=== PATIENT | female | born 1955 | race Caucasian/White ===

== ENCOUNTER → 2017-09-16 | Outpatient (REF) | payer OTHER | LOC: M LAB REF 15:25 | DX: R92.0 Mammographic microcalcification found on diagnostic imaging of breast (principal) ==

== ENCOUNTER → 2019-07-26 | Outpatient (REF) | payer MEDICARE | LOC: M LAB LCGH 11:38 | PROVIDERS: ATTEND Physician Assistant | DX: Z01.419 Encounter for gynecological examination (general) (routine) without abnormal findings (principal) ==

== ENCOUNTER → 2021-10-16 | Outpatient (CLI) | payer MEDICARE ==
[~2021-10-16] MED LIST: CALC500C16 PO; DOXY50TA3 PO; FURO20TA2 PO; VITA200048 PO
[2021-10-16 10:51] VITALS: BP 146/82
== END ==
LOC: M WHCPRO 08:24
PROVIDERS: ATTEND Surgery
DX: C50.912 Malignant neoplasm of unspecified site of left female breast (principal)

== ENCOUNTER → 2021-10-28 | Outpatient (CLI) | payer MEDICARE | LOC: M PLALAB 08:52 | PROVIDERS: ATTEND Surgery | DX: C50.919 Malignant neoplasm of unspecified site of unspecified female breast (principal) ==

== ENCOUNTER → 2021-11-16 | Outpatient (CLI) | payer MEDICARE ==
[~2021-11-16] MED LIST changes: +ATOR1TAB21
== END ==
LOC: M LABSMTC 08:54
PROVIDERS: ATTEND Anesthesiology
DX: Z01.812 Encounter for preprocedural laboratory examination (principal); Z20.822 Contact with and (suspected) exposure to COVID-19

== ENCOUNTER 2021-11-21 08:18 | Observation (INO) | payer MEDICARE ==
[~2021-11-21] VITALS: Ht 160 cm; Wt 89.4 kg
[~2021-11-21 08:18] MED LIST changes: +HEPARIN SOD (PORCINE) 5000UNITS/ML 1ML VIAL/SYRINGE SQ ONE; +LR 1,000 ML IV ONE; +ceFAZolin SOD 2 GM in IV 1 EA IV ONE
[2021-11-21] MEDS ORDERED: THERTAB52 PO (09:14)
[2021-11-21] MEDS ORDERED: HYDR-3490 PO (09:14)
[2021-11-21] MEDS ORDERED: MIDAZOLAM INJ 2MG/2ML VIAL (J2250 PER 1MG) As Ordered ONE (13:10)
[2021-11-21] MEDS ORDERED: fentaNYL 100 MCG/2 ML INJECTION As Ordered ONE ×2 (13:10→16:04)
[2021-11-21] MEDS ORDERED: propofoL 200 MG/20 ML VIAL As Ordered ONE (13:11)
[2021-11-21] MEDS ORDERED: SUCCINYLCHOLINE 100 MG/5 ML SYRINGE (J0330) As Ordered ONE (13:11)
[2021-11-21] MEDS ORDERED: dexameTHASONE 4 MG/ML 1ML VIAL (J1100 PER 1MG) As Ordered ONE (13:11)
[2021-11-21] MEDS ORDERED: ONDANSETRON 4MG/2ML VIAL As Ordered ONE ×2 (13:11→16:14)
[2021-11-21] MEDS ORDERED: LIDOCAINE 2% 100MG/5ML SDV (FOR ANES.) As Ordered ONE (13:11)
[2021-11-21] MEDS ORDERED: SUGAMMADEX SODIUM 500 MG/5 ML VIAL (BRIDION) As Ordered ONE (14:18)
[2021-11-21] MEDS ORDERED: ceFAZolin 1GM VIAL (J0690 PER 500MG) As Ordered ONE (15:13)
[2021-11-21] MEDS ORDERED: LIDOCAINE 1% SDV 30ML VIAL As Ordered ONE (15:13)
[2021-11-21] MEDS ORDERED: METHYLENE BLUE 0.5% (5MG/ML) 10 ML AMP (PROVAYBLUE) As Ordered ONE (15:13)
[2021-11-21] MEDS ORDERED: ROCURONIUM BROMIDE 50 MG/5 ML VIAL As Ordered ONE (15:45)
[2021-11-21] MEDS ORDERED: PHENYLephrine 500MCG 5ML (100MCG/ML) SYRINGE As Ordered ONE (15:55)
[2021-11-21] MEDS ORDERED: HYDROmorphone HCL 2MG/ML 1ML VIAL As Ordered ONE (16:07)
[2021-11-21] MEDS ORDERED: ePHEDrine SULFATE 25 MG/5 ML(5MG/ML) SYRINGE As Ordered ONE (16:10)
[2021-11-21] MEDS ORDERED: METOCLOPRAMIDE INJ 10MG/2ML VIAL (J2765 PER 1) As Ordered ONE (16:14)
[2021-11-21] MEDS ORDERED: ACETAMINOPHEN 1000MG 100ML IV BTL (OFIRMEV) (J0131 PER 10MG) As Ordered ONE (16:14)
[2021-11-21] MEDS: BUPIVACAINE HCL 0.25% 30ML VIAL As Ordered ONE ×2 (17:00→18:13)
[2021-11-21] MEDS: BUPIVACAINE LIPOSOME/PF 1.3% 20ML VIAL (13.3MG/ML)(EXPAREL) As Ordered ONE ×2 (17:00→18:13)
[2021-11-21] MEDS ORDERED: LR 1,000 ML IV SCH ×2 (18:05→19:00)
[2021-11-21] MEDS ORDERED: ONDANSETRON 4MG/2ML VIAL IV PRN ×2 (18:05→19:00)
[2021-11-21] MEDS ORDERED: oxyCODONE 5MG TAB PO PRN (19:00)
[2021-11-21] MEDS ORDERED: fentaNYL 100 MCG/2 ML INJECTION IV PRN (19:00)
[2021-11-21] MEDS ORDERED: MORPHINE 4 MG/ML 1ML VIAL/SYRINGE IV PRN (19:00)
[2021-11-21 20:45] VITALS: BP 166/88
[2021-11-21 21:15] VITALS: BP 151/76
[2021-11-21 21:45] VITALS: BP 154/81
[2021-11-21] MEDS ORDERED: DOXY50TA3 PO (21:52)
[2021-11-21] MEDS ORDERED: VITMTA PO (21:52)
[2021-11-21] MEDS ORDERED: D-20TAB PO (21:52)
[2021-11-21] MEDS ORDERED: ATOR1TAB21 PO (21:52)
[2021-11-21] MEDS ORDERED: OYST500T92 PO (21:52)
[2021-11-21] MEDS ORDERED: HOME MED LIST COMPLETE! XX SCH (21:55)
[2021-11-21] MEDS: ceFAZolin SOD 2 GM in IV 1 EA IV SCH (21:58)
[2021-11-21] MEDS: HEPARIN SOD (PORCINE) 5000UNITS/ML 1ML VIAL/SYRINGE SQ SCH (21:58)
[2021-11-21] MEDS: ACETAMINOPHEN TAB 650MG DOSE (2X325MG) PO PRN (21:59)
[2021-11-21 22:45] VITALS: BP 157/88
[2021-11-21 23:45] VITALS: BP 151/78
[2021-11-22 00:45] VITALS: BP 145/72
[2021-11-22 04:45] VITALS: BP 125/70
[2021-11-22] MEDS: HEPARIN SOD (PORCINE) 5000UNITS/ML 1ML VIAL/SYRINGE SQ SCH (05:20)
[2021-11-22] MEDS: ACETAMINOPHEN TAB 650MG DOSE (2X325MG) PO PRN (05:20)
[2021-11-22] MEDS: ceFAZolin SOD 2 GM in IV 1 EA IV SCH (05:20)
[2021-11-22 10:00] VITALS: BP 131/72
[2021-11-22] MEDS ORDERED: TRAM50TA2 PO (10:21)
== END 2021-11-22 13:00 | disposition home or self-care (01) ==
LOC: M SDC 08:18 → M MS5PR 08:19
PROVIDERS: ADMIT Surgery; ATTEND Surgery
DX: D05.12 Intraductal carcinoma in situ of left breast (principal); N64.89 Other specified disorders of breast; F40.240 Claustrophobia; E78.2 Mixed hyperlipidemia; R73.01 Impaired fasting glucose; R10.2 Pelvic and perineal pain; M85.80 Other specified disorders of bone density and structure, unspecified site; M72.2 Plantar fascial fibromatosis; E55.9 Vitamin D deficiency, unspecified; I11.9 Hypertensive heart disease without heart failure; I25.10 Atherosclerotic heart disease of native coronary artery without angina pectoris; L71.9 Rosacea, unspecified; R60.0 Localized edema; Z79.899 Other long term (current) drug therapy; Z79.2 Long term (current) use of antibiotics; Z92.29 Personal history of other drug therapy; Z98.890 Other specified postprocedural states; Z87.891 Personal history of nicotine dependence
CPT/HCPCS: 19302; 19316; 36415; 38525; 76942; 78195; 86850; 86900; 86901; 88305; 88307; 96372; 96374; 96376; A9520; C9290; G0378; J0131; J0330; J0690; J1100; J1170; J1644; J2250; J2370; J2405; J2765; J3010

== ENCOUNTER → 2021-12-10 | Outpatient (CLI) | payer MEDICARE ==
[~2021-12-10] MED LIST changes: +ANAS1TAB2 PO; +ATOR1TAB21 PO; +D 1010004 PO; +D-20TAB PO; -HEPARIN SOD (PORCINE) 5000UNITS/ML 1ML VIAL/SYRINGE SQ ONE; +HYDR-3490 PO; -LR 1,000 ML IV ONE; +OYST500T92 PO; +THERTAB52 PO; +TRAM50TA2 PO; +VITMTA PO; +[UNRECOGNIZED DRUG - OTHER] PO; -ceFAZolin SOD 2 GM in IV 1 EA IV ONE
== END ==
LOC: M ONCR 12:40
PROVIDERS: ATTEND General Practice
DX: D05.12 Intraductal carcinoma in situ of left breast (principal); Z79.2 Long term (current) use of antibiotics; Z79.899 Other long term (current) drug therapy

== ENCOUNTER → 2021-12-12 | Outpatient (CLI) | payer MEDICARE | LOC: M LABSMTC 10:26 | PROVIDERS: ATTEND Anesthesiology | DX: Z01.818 Encounter for other preprocedural examination (principal); Z11.52 Encounter for screening for COVID-19 ==

== ENCOUNTER 2021-12-17 08:45 | Observation (INO) | payer MEDICARE ==
[2021-12-17] VITALS (8 sets, daily range): BP systolic 121–138; BP diastolic 65–96
[~2021-12-17] VITALS: Ht 160 cm; Wt 89.4 kg
[~2021-12-17 08:45] MED LIST changes: +HEPARIN SOD (PORCINE) 5000UNITS/ML 1ML VIAL/SYRINGE SQ ONE; +LIDOCAINE 2% 100MG/5ML SDV (FOR ANES.) As Ordered ONE; +MIDAZOLAM INJ 2MG/2ML VIAL (J2250 PER 1MG) As Ordered ONE; +NS 1,000 ML IV SCH; +ONDANSETRON 4MG/2ML VIAL As Ordered ONE; +ceFAZolin SOD 2 GM in IV 1 EA IV ONE; +dexameTHASONE 4 MG/ML 1ML VIAL (J1100 PER 1MG) As Ordered ONE; +fentaNYL 100 MCG/2 ML INJECTION As Ordered ONE; +propofoL 200 MG/20 ML VIAL As Ordered ONE
[2021-12-17] MEDS ORDERED: LR 1,000 ML IV SCH ×3 (09:00→14:25)
[2021-12-17] MEDS ORDERED: INSULIN LISPRO (NovoLOG) PER UNIT SC PRN ×2 (09:00→14:05)
[2021-12-17] MEDS ORDERED: SCOPOLAMINE 1MG TRANSDERMAL PATCH TOP ONE (09:45)
[2021-12-17] MEDS ORDERED: BUPIVACAINE HCL 0.25% 10ML VIAL As Ordered ONE (11:27)
[2021-12-17] MEDS ORDERED: BUPIVACAINE LIPOSOME/PF 1.3% 20ML VIAL (13.3MG/ML)(EXPAREL) As Ordered ONE (11:27)
[2021-12-17] MEDS ORDERED: ACETAMINOPHEN 1000MG 100ML IV BTL (OFIRMEV) (J0131 PER 10MG) As Ordered ONE (12:18)
[2021-12-17] MEDS ORDERED: METOCLOPRAMIDE INJ 10MG/2ML VIAL (J2765 PER 1) As Ordered ONE (12:18)
[2021-12-17] MEDS ORDERED: ROCURONIUM BROMIDE 50 MG/5 ML VIAL As Ordered ONE (12:18)
[2021-12-17] MEDS ORDERED: SUGAMMADEX SODIUM 500 MG/5 ML VIAL (BRIDION) As Ordered ONE (12:18)
[2021-12-17] MEDS ORDERED: ONDANSETRON 4MG/2ML VIAL IV PRN ×2 (14:05→14:25)
[2021-12-17] MEDS ORDERED: MORPHINE 2 MG/ML 1ML VIAL IV PRN ×2 (14:05→14:25)
[2021-12-17] MEDS ORDERED: oxyCODONE 5MG TAB PO PRN (14:05)
[2021-12-17] MEDS ORDERED: fentaNYL 100 MCG/2 ML INJECTION IV PRN (14:05)
[2021-12-17] MEDS ORDERED: traMADol 50 MG TAB PO PRN (14:25)
[2021-12-17] MEDS ORDERED: ACETAMINOPHEN TAB 650MG DOSE (2X325MG) PO PRN (14:25)
[2021-12-17 16:13] LABS: HEMATOCRIT 38.8 % (36.0-47.0); MEAN CORPUSCULAR HEMOGLOBIN 29.4 pg (27.0-33.0); MEAN CORPUSCULAR HGB CONC 33.5 g/dl (32.0-36.5); MEAN CORPUSCULAR VOLUME 87.8 fl (80.0-96.0); PLATELET COUNT, AUTOMATED 270 10^3/uL (150-450); RED BLOOD COUNT 4.42 10^6/uL (4.00-5.40); WHITE BLOOD COUNT 7.7 10^3/uL (4.0-10.0)
[2021-12-17] MEDS: ceFAZolin SOD 2 GM in IV 1 EA IV SCH (20:18)
[2021-12-17] MEDS: HEPARIN SOD (PORCINE) 5000UNITS/ML 1ML VIAL/SYRINGE SQ SCH (22:20)
[2021-12-18 02:00] VITALS: BP 134/72
[2021-12-18] MEDS: ceFAZolin SOD 2 GM in IV 1 EA IV SCH ×2 (04:15→11:23)
[2021-12-18] MEDS: HEPARIN SOD (PORCINE) 5000UNITS/ML 1ML VIAL/SYRINGE SQ SCH (04:16)
[2021-12-18 06:00] VITALS: BP 132/77
[2021-12-18] MEDS ORDERED: TRAM50TA2 PO (09:54)
[2021-12-18 10:00] VITALS: BP 126/65
== END 2021-12-18 12:45 | disposition home or self-care (01) ==
LOC: M SDC 08:45 → M MS5PR 08:46
PROVIDERS: ADMIT Surgery; ATTEND Surgery
DX: D05.12 Intraductal carcinoma in situ of left breast (principal)
CPT/HCPCS: 19301; 36415; 85027; 86850; 86900; 86901; 88305; 88307; 96365; 96366; 96372; 96376; C9290; G0378; J0131; J0690; J1100; J1644; J2250; J2405; J2765; J3010

== ENCOUNTER → 2022-01-23 | Outpatient (RCR) | payer MEDICARE ==
[~2022-01-23] MED LIST changes: -HEPARIN SOD (PORCINE) 5000UNITS/ML 1ML VIAL/SYRINGE SQ ONE; -LIDOCAINE 2% 100MG/5ML SDV (FOR ANES.) As Ordered ONE; -MIDAZOLAM INJ 2MG/2ML VIAL (J2250 PER 1MG) As Ordered ONE; -NS 1,000 ML IV SCH; -ONDANSETRON 4MG/2ML VIAL As Ordered ONE; -ceFAZolin SOD 2 GM in IV 1 EA IV ONE; -dexameTHASONE 4 MG/ML 1ML VIAL (J1100 PER 1MG) As Ordered ONE; -fentaNYL 100 MCG/2 ML INJECTION As Ordered ONE; -propofoL 200 MG/20 ML VIAL As Ordered ONE
== END ==
LOC: M ONCR 01-02 08:32
PROVIDERS: ATTEND General Practice
DX: D05.12 Intraductal carcinoma in situ of left breast (principal)

== ENCOUNTER 2022-02-12 08:57 | Outpatient (RCR) | payer MEDICARE | END 2022-02-23 | LOC: M ONCR 08:57 | PROVIDERS: ATTEND General Practice | DX: D05.12 Intraductal carcinoma in situ of left breast (principal) ==

== ENCOUNTER → 2022-08-15 | Outpatient (CLI) | payer MEDICARE ==
[~2022-08-15] MED LIST changes: +LEVO75TA4; +OXYB5TAB10 PO
== END ==
LOC: M ONCR 14:52
PROVIDERS: ATTEND General Practice
DX: D05.12 Intraductal carcinoma in situ of left breast (principal); Z92.3 Personal history of irradiation; Z79.811 Long term (current) use of aromatase inhibitors; Z87.891 Personal history of nicotine dependence; Z79.2 Long term (current) use of antibiotics; Z79.899 Other long term (current) drug therapy

== ENCOUNTER → 2022-09-30 | Outpatient (CLI) | payer MEDICARE ==
[~2022-09-30] MED LIST changes: -LEVO75TA4; +LEVO75TA4 PO; +potassium PO
== END ==
LOC: M WHC 08:49
PROVIDERS: ATTEND Nurse Practitioner Women's Health
DX: D05.12 Intraductal carcinoma in situ of left breast (principal); Z15.09 Genetic susceptibility to other malignant neoplasm
CPT/HCPCS: 77066; G0279

== ENCOUNTER → 2022-10-02 | Outpatient (CLI) | payer MEDICARE | LOC: M LABSMTC 09:15 | PROVIDERS: ATTEND Anesthesiology | DX: Z01.812 Encounter for preprocedural laboratory examination (principal); Z20.822 Contact with and (suspected) exposure to COVID-19 ==

== ENCOUNTER 2022-10-07 05:59 | Day surgery (SDC) | payer MEDICARE ==
[~2022-10-07] VITALS: Ht 160 cm; Wt 89.9 kg
[2022-10-07] MEDS ORDERED: HEPARIN SOD (PORCINE) 5000UNITS/ML 1ML VIAL/SYRINGE SQ ONE (06:00)
[2022-10-07] MEDS ORDERED: ceFAZolin SOD 2 GM in IV 1 EA IV ONE (06:00)
[2022-10-07] MEDS ORDERED: LR 1,000 ML IV SCH ×2 (06:55→10:10)
[2022-10-07] MEDS ORDERED: propofoL 200 MG/20 ML VIAL As Ordered ONE (07:16)
[2022-10-07] MEDS ORDERED: MIDAZOLAM INJ 2MG/2ML VIAL As Ordered ONE (07:16)
[2022-10-07] MEDS ORDERED: fentaNYL 100 MCG/2 ML INJECTION As Ordered ONE (07:16)
[2022-10-07] MEDS ORDERED: ONDANSETRON 4MG 2ML VIAL As Ordered ONE (07:17)
[2022-10-07] MEDS ORDERED: LIDOCAINE 2% 100MG/5ML SDV (FOR ANES.) As Ordered ONE (07:17)
[2022-10-07] MEDS ORDERED: BUPIVACAINE HCL 0.25% 10ML VIAL As Ordered ONE (07:23)
[2022-10-07] MEDS ORDERED: BUPIVACAINE LIPOSOME/PF 1.3% 20ML VIAL (13.3MG/ML)(EXPAREL) As Ordered ONE (07:23)
[2022-10-07] MEDS ORDERED: GENTAMICIN SULF 80MG/2ML VIAL As Ordered ONE (07:23)
[2022-10-07] MEDS ORDERED: ePHEDrine SULFATE 25 MG/5 ML(5MG/ML) SYRINGE As Ordered ONE (08:05)
[2022-10-07] MEDS ORDERED: HYDROmorphone HCL 2MG/ML 1ML VIAL As Ordered ONE (08:58)
[2022-10-07] MEDS ORDERED: ACETAMINOPHEN 1000MG 100ML IV BAG As Ordered ONE ×2 (09:27→11:11)
[2022-10-07] MEDS ORDERED: ROCURONIUM BROMIDE 50MG/5ML VIAL As Ordered ONE (09:28)
[2022-10-07] MEDS ORDERED: SUGAMMADEX SODIUM 500 MG/5 ML VIAL (BRIDION) As Ordered ONE (09:28)
[2022-10-07] MEDS ORDERED: oxyCODONE 5MG TAB PO PRN (10:10)
[2022-10-07] MEDS ORDERED: METOCLOPRAMIDE INJ 10MG/2ML VIAL IV PRN (10:10)
[2022-10-07] MEDS ORDERED: ONDANSETRON 4MG 2ML VIAL IV PRN (10:10)
[2022-10-07] MEDS ORDERED: fentaNYL 100 MCG/2 ML INJECTION IV PRN (10:10)
[2022-10-07] MEDS ORDERED: HYDROMORPHONE HCL 0.5 MG/ 0.5 ML SYRINGE IV PRN (10:10)
[2022-10-07 16:00] VITALS: BP 132/68
[2022-10-07] MEDS ORDERED: TRAM50TA2 PO (16:02)
== END 2022-10-07 14:25 | disposition home or self-care (01) ==
LOC: M SDC 05:59
PROVIDERS: ATTEND Plastic Surgery Surgery of the Hand
DX: N65.1 Disproportion of reconstructed breast (principal); Z85.3 Personal history of malignant neoplasm of breast; E78.00 Pure hypercholesterolemia, unspecified; R60.0 Localized edema; E03.9 Hypothyroidism, unspecified; K21.9 Gastro-esophageal reflux disease without esophagitis; Z79.899 Other long term (current) drug therapy; Z79.890 Hormone replacement therapy; Z79.2 Long term (current) use of antibiotics; Z92.21 Personal history of antineoplastic chemotherapy
CPT/HCPCS: 19318; 88305; C9290; J0690; J1100; J1170; J2250; J2405; J3010

== ENCOUNTER → 2023-05-25 | Outpatient (CLI) | payer MEDICARE ==
[~2023-05-25] MED LIST changes: -OXYB5TAB10 PO; +OXYB5TAB11 PO
[2023-05-25 16:30] LABS: BLOOD UREA NITROGEN 14 MG/DL (9-23); CALCIUM LEVEL 10.2 MG/DL (8.3-10.6); CARBON DIOXIDE LEVEL 26 MMOL/L (20-31); CHLORIDE LEVEL 107 MMOL/L (98-107); CREATININE FOR GFR 0.78 MG/DL (0.55-1.30); GLOMERULAR FILTRATION RATE > 60.0 (>39); GLUCOSE, FASTING 98 MG/DL (74-106); POTASSIUM SERUM 3.6 MMOL/L (3.5-5.1); SODIUM LEVEL 144 MMOL/L (136-145)
== END ==
LOC: M PLALAB 13:28
PROVIDERS: ATTEND Nurse Practitioner Women's Health
DX: Z01.812 Encounter for preprocedural laboratory examination (principal)

== ENCOUNTER → 2023-06-01 | Outpatient (CLI) | payer MEDICARE ==
[~2023-06-01] MED LIST changes: +PROHANCE 279.3MG/ML 15ML VIAL As Ordered ONE; +PROHANCE 279.3MG/ML 5ML VIAL As Ordered ONE
== END ==
LOC: M RAD 10:23
PROVIDERS: ATTEND Nurse Practitioner Women's Health
DX: Z15.01 Genetic susceptibility to malignant neoplasm of breast (principal)
CPT/HCPCS: A9576; C8908

== ENCOUNTER → 2023-08-14 | Outpatient (CLI) | payer MEDICARE ==
[~2023-08-14] MED LIST changes: -PROHANCE 279.3MG/ML 15ML VIAL As Ordered ONE; -PROHANCE 279.3MG/ML 5ML VIAL As Ordered ONE
== END ==
LOC: M ONCR 12:36
PROVIDERS: ATTEND General Practice
DX: D05.12 Intraductal carcinoma in situ of left breast (principal); Z71.2 Person consulting for explanation of examination or test findings; Z79.2 Long term (current) use of antibiotics; Z79.811 Long term (current) use of aromatase inhibitors; Z79.899 Other long term (current) drug therapy; Z87.891 Personal history of nicotine dependence; Z92.3 Personal history of irradiation; Z98.890 Other specified postprocedural states

== ENCOUNTER → 2023-10-06 | Outpatient (CLI) | payer MEDICARE ==
[~2023-10-06] MED LIST changes: -OXYB5TAB11 PO; +OXYB5TAB14 PO
== END ==
LOC: M WHC 11:16
PROVIDERS: ATTEND Nurse Practitioner Women's Health
DX: D05.12 Intraductal carcinoma in situ of left breast (principal)
CPT/HCPCS: 77066; G0279

== ENCOUNTER → 2024-08-15 | Outpatient (CLI) | payer MEDICARE ==
[~2024-08-15] MED LIST changes: +ALEN70TA82 PO
== END ==
LOC: M ONCR 12:50
PROVIDERS: ATTEND General Practice
DX: Z08 Encounter for follow-up examination after completed treatment for malignant neoplasm (principal); Z85.3 Personal history of malignant neoplasm of breast; Z92.3 Personal history of irradiation; Z79.811 Long term (current) use of aromatase inhibitors; Z87.891 Personal history of nicotine dependence; Z79.899 Other long term (current) drug therapy; Z63.4 Disappearance and death of family member; Z79.2 Long term (current) use of antibiotics; Z98.890 Other specified postprocedural states

== ENCOUNTER → 2024-10-04 | Outpatient (CLI) | payer MEDICARE | LOC: M WHC 09:38 | PROVIDERS: ATTEND Nurse Practitioner Women's Health | DX: Z12.31 Encounter for screening mammogram for malignant neoplasm of breast (principal); N64.9 Disorder of breast, unspecified | CPT/HCPCS: 77066; G0279 ==

== ENCOUNTER → 2025-02-14 | Outpatient (CLI) | payer MEDICARE | LOC: M ONCR 12:45 | PROVIDERS: ATTEND General Practice | DX: D05.12 Intraductal carcinoma in situ of left breast (principal); Z63.4 Disappearance and death of family member; Z79.2 Long term (current) use of antibiotics; Z79.811 Long term (current) use of aromatase inhibitors; Z79.899 Other long term (current) drug therapy; Z87.891 Personal history of nicotine dependence; Z92.3 Personal history of irradiation; Z98.890 Other specified postprocedural states ==

== ENCOUNTER → 2025-04-20 | Outpatient (CLI) | payer MEDICARE ==
[~2025-04-20] MED LIST changes: +PROHANCE 279.3MG/ML 15ML VIAL ONE; +PROHANCE 279.3MG/ML 5ML VIAL ONE
== END ==
LOC: M PLAIMG 10:05
PROVIDERS: ATTEND Surgery
DX: D05.12 Intraductal carcinoma in situ of left breast (principal); Z15.01 Genetic susceptibility to malignant neoplasm of breast
CPT/HCPCS: A9576; C8908